=== PATIENT | female | born 1930 | race Caucasian/White ===

== ENCOUNTER 2017-02-16 11:54 | Outpatient (CLI) | payer OTHER, MEDICARE ==
[~2017-02-16 11:54] MED LIST: ACETAMINOPHEN325 MG PO; CALCIUM CARBON500 MG PO; HYDROCHLOROTHIA25 MG PO; LEVOTHYROXINE50 MCG PO; LIDODERM5 % TOP; LYCOPENE10 MG PO; MACRODANTIN50 MG PO; MECLIZINE HCL25 M1 PO; OMEPRAZOLE20 M1; ONDANSETRON ODT4 MG PO; PERCOCET1 TA1 PO; PHENAZO200 MG PO; POTABA500 MG PO; PROCHLORPERAZIN25 MG PR; SIMVASTATIN20 MG PO; TRANSDERM-SCOP1.5 MG TOP; VISTARIL25 MG PO; VITAMIN B12500 MCG PO; VITAMIN D-31000 UNIT PO; VITAMIN E200 UNIT PO; [UNRECOGNIZED DRUG - OTHER]
--- NOTE | 2017-02-16 13:40 | DIAGNOSTIC IMAGING REPORT ---
PROCEDURE: CT LOWER EXT W/O CONTRAST-LEFT INDICATION: CLOSED FX LEFT HIP, NON UNION TECHNIQUE: Axial scans with coronal and sagittal re-formations. COMPARISON: Left hip CT scan 04/11/2016. FINDINGS: There is a left-sided intramedullary femoral nail with a single femoral neck screw in place. There is a mildly displaced fracture through the proximal femur and lesser trochanter. There is bridging callus formation posteriorly and laterally which has progressed. Fracture is approximate 50% visible, previously approximate 90%. No evidence of periprosthetic lucency to suggest loosening. Old healed right anterior ramus fracture. Some suspicious degenerative changes. Osteopenia. Degenerative changes of the distal lumbar spine. Hysterectomy. IMPRESSION: 1. Left proximal femur fracture with ORIF and progression of partial healing 2. Old healed right inferior pubic ramus fracture 3. Osteopenia
== END 2017-02-16 23:00 ==
LOC: CT SRH 11:54
DX: S72.002K Fracture of unspecified part of neck of left femur, subsequent encounter for closed fracture with nonunion (principal); M85.88 Other specified disorders of bone density and structure, other site